=== PATIENT | female | born 1995 | race Caucasian/White ===

== ENCOUNTER 2021-06-05 11:46 | Emergency (ER) | payer BC, OTHER ==
[~2021-06-05] VITALS: Ht 162.6 cm; Wt 64.4 kg
[2021-06-05 11:52] VITALS: BP 127/80
[2021-06-05] MEDS ORDERED: TETRACAINE HCL/PF 0.5% OPTH 4 ML BTL OP ONE (12:25)
[2021-06-05] MEDS ORDERED: FLUORESCEIN OPTH STRIP 1 MG OP ONE (12:25)
[2021-06-05] MEDS ORDERED: TOMOMETER 1 DEV DEV MC ONE (12:31)
[2021-06-05] MEDS ORDERED: TOBR5SOL17 OP (12:42)
--- NOTE | 2021-06-05 12:53 | NUR ---
Right eye pain since x4 days. Denies trauma or injury. Pt reports having blurry vision and watery eyes. Denies discharge. Scelera is pink. Pain level 5/10.
--- NOTE | 2021-06-05 12:57 | NUR ---
Patient discharged with v/s stable. Written and verbal after care instructions given and explained. Patient alert, oriented and verbalized understanding of instructions. Ambulatory with steady gait. All questions addressed prior to discharge. ID band removed. Patient advised to follow up with PMD. Rx of TOBRAMYCIN given. Patient educated on indication of medication including possible reaction and side effects. Opportunity to ask questions provided and answered.
== END 2021-06-05 12:55 | disposition home or self-care (01) ==
LOC: MED 11:46
DX: M06.9 Rheumatoid arthritis, unspecified (principal); Z79.2 Long term (current) use of antibiotics
CPT/HCPCS: 99283

== ENCOUNTER 2021-06-06 16:34 | Emergency (ER) | payer BC, OTHER ==
[~2021-06-06] VITALS: Ht 162.6 cm; Wt 65.8 kg
[~2021-06-06 16:34] MED LIST: TOBR5SOL17 OP
[2021-06-06 16:51] VITALS: BP 116/73
--- NOTE | 2021-06-06 17:05 | NUR ---
[facility]: RIGHT EYE 20/200, LEFT EYE 20/20, BOTH EYES 20/20.
--- NOTE | 2021-06-06 20:45 | NUR ---
seen and examined by JOYCELYN
[2021-06-06] MEDS ORDERED: TETRACAINE HCL/PF 0.5% OPTH 4 ML BTL OP ONE (20:50)
[2021-06-06] MEDS ORDERED: FLUORESCEIN OPTH STRIP 1 MG OP ONE (20:50)
[2021-06-07] MEDS ORDERED: PREOS RIGHT EYE (01:38)
[2021-06-07 01:40] VITALS: BP 122/81
--- NOTE | 2021-06-07 01:40 | NUR ---
Patient discharged with v/s stable. Written and verbal after care instructions given and explained. Patient alert, oriented and verbalized understanding of instructions. Ambulatory with steady gait. All questions addressed prior to discharge. ID band removed. Patient advised to follow up with PMD. Rx of pred forte 1%op given. Patient educated on indication of medication including possible reaction and side effects. Opportunity to ask questions provided and answered.
== END 2021-06-07 01:40 | disposition home or self-care (01) ==
LOC: MED 16:34
DX: H20.9 Unspecified iridocyclitis (principal)
CPT/HCPCS: 99283

== ENCOUNTER 2024-05-06 12:58 | Emergency (ER) | payer BC, OTHER ==
[~2024-05-06] VITALS: Ht 162.6 cm; Wt 69.9 kg
[~2024-05-06 12:58] MED LIST changes: +PREOS RIGHT EYE; -TOBR5SOL17 OP; +TOBR5SOL38 OP
[2024-05-06 13:14] VITALS: BP 115/79; PULSE 93; RESP 19; TEMP 97.7; O2SAT 100
--- NOTE | 2024-05-06 13:35 | NUR ---
Patient being evaluated by physician at bedside.
[2024-05-06 14:06] LABS: APPEARANCE,URINE CLEAR (CLEAR); BILIRUBIN,URINE NEGATIVE (NEGATIVE); BLOOD, URINE 3+ (NEGATIVE); LEUKOCYTE ESTERASE ,URINE NEGATIVE (NEGATIVE); NITRITE, URINE NEGATIVE (NEGATIVE); PH,URINE 8.5 (5.0-9.0); PROTEIN,URINE 1+ (NEGATIVE); UGLUCOSE NEGATIVE (NEGATIVE)
[2024-05-06 14:08] LABS: COLOR,URINE ORANGE (YELLOW)
[2024-05-06 14:19] LABS: AMPHETAMINE, URINE NEGATIVE ng/ml (NEG <=1000); BARBITURATE, URINE NEGATIVE ng/ml (NEG <=200); BENZODIAZEPINE, URINE NEGATIVE ng/mL (NEG <=200); CANNABINOID, URINE NEGATIVE ng/mL (NEG <=50); COCAINE, URINE NEGATIVE ng/mL (NEG <=300); OPIATE, URINE NEGATIVE ng/mL (NEG <=2000); PHENCYCLIDINE SCREEN,URINE NEGATIVE ng/mL (NEG <=25)
[2024-05-06 14:25] LABS: WBC,URINE 0-5 /HPF (0-5)
[2024-05-06 14:26] LABS: BACTERIA,URINE FEW /HPF (None Seen); SQUAMOUS EPITHELIAL CELL,UR 4-10 (MOD) /LPF (0-3 (FEW))
[2024-05-06] MEDS ORDERED: ONDANSETRON 4 MG ODT ONE (14:45)
[2024-05-06] MEDS: ONDANSETRON 4 MG ODT PO ONE (14:49)
--- NOTE | 2024-05-06 14:49 | NUR ---
PT MEDICATED ORDERED.
--- NOTE | 2024-05-06 15:18 | NUR ---
PT STATED SHE IS FEELING BETTER SINCE MEDICATED WITH ZOFRAN.
[2024-05-06] MEDS ORDERED: ONDA-188 SL (16:09)
[2024-05-06] MEDS ORDERED: ACET500T99 PO (16:09)
[2024-05-06 16:47] VITALS: BP 103/60; PULSE 85; RESP 20; TEMP 97.7; O2SAT 98
--- NOTE | 2024-05-06 16:47 | NUR ---
Patient discharged with v/s stable. Written and verbal after care instructions given and explained. Patient alert, oriented and verbalized understanding of instructions. Ambulatory with steady gait. All questions addressed prior to discharge. ID band removed. Patient advised to follow up with PMD. Rx of ACETAMINOPHEN & ZOFRAN given. Patient educated on indication of medication including possible reaction and side effects. Opportunity to ask questions provided and answered.
== END 2024-05-06 16:47 | disposition home or self-care (01) ==
LOC: MED 12:58
DX: R11.2 Nausea with vomiting, unspecified (principal); R19.7 Diarrhea, unspecified; R10.84 Generalized abdominal pain; M19.90 Unspecified osteoarthritis, unspecified site; F12.90 Cannabis use, unspecified, uncomplicated; Z79.899 Other long term (current) drug therapy
CPT/HCPCS: 80305; 81001; 81025; 93005; 99284; Q0162